=== PATIENT | male | born 1970 | race Caucasian/White ===

== ENCOUNTER 2019-05-03 09:02 | Emergency (ER) | payer OTHER, SELFPAY ==
[2019-05-03 09:03] VITALS: BP 139/90; PULSE 77; RESP 20; TEMP 36.6; O2SAT 98; BMI 39.3
--- NOTE | 2019-05-03 09:15 | ED.DCSUM_ITS ---
History of Present Illness Chief Complaint: Shortness of Breath Informant: Patient Onset: Weeks - 2 Activity at onset: Exertion Timing: Continuous Quality: Dyspnea on exertion, Wheezing Current Severity: Moderate Maximum Severity: Moderate Worsened by: Coughing, Exertion, - - smoking Relieved by: Rest Associated Symptoms: Cough - [employer], Rhinorrhea. Negative for: Bloody Sputum, Chills, Ear pain, Fever, Sore throat Chest Pain: Tightness - mild, when wheezing Narrative: Smoker with 4-48-lvgy-year history, about half pack per day, states that for the past 2 weeks he has had a respiratory illness, he states it feels like there is some fluid on his lungs he is developed wheezing with chest tightness that worsened and improved together, without orthopnea, fevers, leg edema. He has no known history of pulmonary or cardiac disease. He denies any palpitations or other systemic symptoms. - Past Medical History (1) Schizoaffective disorder Status: Acute Past Medical History - Allergies and Home Meds Allergies/Adverse Reactions: Allergies No Known Allergies Allergy (Verified 05/03/19 09:06) Primary Care Physician: Leonid Doctor,Out of [Family Provider] - Smoking Status: Current every day smoker Drugs: None Review of Systems General: Denies: Chills, Fever, Sweats Eyes: Denies: Visual changes - bilaterally, Diplopia ENT: Reports: Rhinorrhea. Denies: Bilateral ear pain, Sore throat Cardiovascular: Reports: Chest pain. Denies: Palpitations, Heart racing Respiratory: Reports: Dyspnea, Cough, Dyspnea on exertion. Denies: Sputum, Orthopnea, Paroxysmal nocturnal dyspnea Gastrointestinal: Denies: Abdominal pain, Nausea, Vomiting, Diarrhea, Melena, Hematochezia Genitourinary: Denies: Dysuria, Hematuria, Frequency Musculoskeletal: Denies: Back pain, Swelling, Extremity Pain Skin: Denies: Rash, Wounds Neurological: Denies: Headache, Weakness, Numbness Physical Exam Vital Signs/Narrative: Vital Signs Temp Pulse Resp BP Pulse Ox 05/03/19 09:03 97.8 F 77 20 H 139/90 H 98 Inital Vital Signs reviewed: Yes General: Well nourished, Well developed, No Acute Distress - Speaking in full sentences, well-appearing, no coughing during exam Head: Normocephalic, Atraumatic Eyes: Perrl, EOMI ENT: Moist mucous membranes, No rhinorrhea Neck: Supple, Nontender, No JVD Cardiovascular: Regular rate, Regular rhythm, No murmurs, Normal S1, Normal S2. Negative for: Tachycardia Respiratory: No distress, Chest nontender, Wheezing. Negative for: Rales, Rhonchi Abdomen: Soft, Nontender, Nondistended, Normal bowel sounds Back: Nontender, Normal Inspection Extremities: Nontender, No edema. Negative for: Calf Tenderness Skin: Normal color, No rash, No Trauma Neurological: Alert, Oriented x3, Cranial nerves II-XII grossly intact, Normal Strength, Normal Sensation, Normal Gait Psychological: Normal affect, Normal Mood Diagnostic/Tx/Re-eval Chest X-Ray - ED: 2 View, Read by ED Physician, Normal, Heart, Lungs, Medi astinum, Bony Structures, No Acute Disease Clinical Impression(s) from Imaging Studies Chest X-Ray 05/03/19 09:15 IMPRESSION: No acute process. Electronically Signed: Weston Garcia MD at 9:49 EDT , Service support , Treatment - Dyspnea: Albuterol, Atrovent Repeat Evaluation: Improved - On reexamination, wheezing resolved and lungs clear - Medical Decision Making Given patient worsening after 2 weeks, will prescribe a broad-spectrum antibiotic to cover atypicals, azithromycin. Also will give him a prescription for an albuterol MDI. Advised to follow-up or return if worse. ED Disposition - Plan for ED Patient: Disposition: Home or Assisted Living Diagnosis: Acute wheezy bronchitis Instructions: BRONCHITIS with Wheezing (Adult) Prescriptions: Albuterol Inhaler [Ventolin Hfa] 1 - 2 puff INHALATION Q4H PRN PRN #1 inhaler PRN Reason: Wheezing Prescription Printed Azithromycin [Zithromax Z-Jac] 250 mg PO UD #1 box Prescription Printed Referrals: [facility] Doctor,Out of [Family Provider] - 1 Week if not improving
--- NOTE | 2019-05-03 09:15 | RAD_ITS ---
STUDY: X-RAY CHEST REASON FOR EXAM: Male, 49 years old. Cough/shortness of breath TECHNIQUE: PA and lateral views of the chest. COMPARISON: None. FINDINGS: The right upper lobe appears somewhat small in volume. There is appearance of several adjacent healed rib fractures. The visualized lung carrillo are otherwise. There is no demonstrated pleural abnormality. Normal size heart. Normal mediastinum and tracy. Normal visualized pulmonary arteries. Normal visualized aortic arch and descending thoracic aorta. Normal visualized thoracic spine. Normal visualized clavicles, and shoulders. RAD/Chest PA and Lateral IMPRESSION: No acute process. Electronically Signed: Weston Garcia MD at 9:49 EDT , Service support ,
[2019-05-03] MEDS: Albuterol 2.5 MG/3 ML VIAL.NEB. INHALATION (09:22)
[2019-05-03] MEDS: Ipratropium/Albuterol Sulfate 3 ML AMPUL.NEB INHALATION (09:22)
[2019-05-03 09:25] VITALS: PULSE 80; RESP 20
== END 2019-05-03 10:06 | disposition home or self-care (01) ==
PROVIDERS: Emergency Provider Emergency Medicine
DX: J20.9 Acute bronchitis, unspecified (principal); F17.200 Nicotine dependence, unspecified, uncomplicated
CPT/HCPCS: 71046; 94640; 99282

== ENCOUNTER 2023-05-30 13:55 | Emergency (ER) | payer OTHER, SELFPAY ==
[2023-05-30 13:56] VITALS: BP 136/86; PULSE 106; RESP 14; TEMP 36.4; O2SAT 98; BMI 38.5
--- NOTE | 2023-05-30 14:13 | EDS_ITS ---
HPI History of Present Illness Chief Complaint: Male Pain/Injury Detail of Chief Complaint: Perineum pain and weak urine stream Informant: patient Narrative Narrative: Patient presents to the emergency department with several complaints. Patient states that last evening he had some discomfort in his perineum which she thought was related to his prostate. Pain lasted a few hours and then resolved. Patient also states that he had a weak urine stream for about 3 years. Patient at times also having a hard time obtaining a full erection. He has not seen anybody for this. Patient does state that he wakes up in the middle night to ur inate and urinates about 6 times a day. He denies any fevers or chills or sweats. Patient normally goes to the [place] but has not talked to his doctors about any of this. PFSH PFSH Medical History no medical history Allergy/AdvReac Type Severity Reaction Status Date / Time No Known Allergies Allergy Verified 05/30/23 13:57 Social History Smoking Status: Current every day smoker tobacco type: cigarettes ROS ROS ED Review of Systems ROS Unobtainable: other Constitutional Constitutional ED: Reports lethargy; Denies chills, fever(s), sweats or weight loss Eyes Eyes: Denies blurry vision, change in vision or diplopia ENT ENT ED: Denies rhinorrhea or sore throat Cardiovascular Cardiovascular: Reports chest pain and racing heartbeat; Denies orthopnea Respiratory/Chest Respiratory/Chest: Reports dyspnea and dyspnea on exertion; Denies cough, orthopnea or sputum Gastrointestinal Gastrointestinal: Denies abdominal pain, diarrhea, nausea or vomiting Genitourinary Genitourinary ED: Reports other Details: Weak urine stream intermittent, perineal pain resolved, difficulty obtaining erection. ; Denies dysuria, hematuria or urinary frequency Musculoskeletal Musculoskeletal: Denies arthralgias, back pain, myalgias or neck pain Integumentary Denies abscess, Abrasions or rash Neurologic Neurologic: Denies headache(s) or weakness Psychiatric Psychiatric: Denies anxiety, depression or suicidal thoughts Endocrine Endocrinology: Denies polydipsia, polyphagia or polyuria Hematologic/Lymphatic Hematologic/Lymphatic: Denies easy bleeding, easy bruising or lymphadenopathy Allergic/Immunologic Allergic/Immunologic ED: Denies mouth swelling, tongue swelling or urticaria EXAM Physical Exam Const Vital Signs: 05/30/23 13:56 Temperature 97.5 F L Temperature Source Temporal Pulse Rate 106 H Respiratory Rate 14 Blood Pressure 136/86 H Blood Pressure Mean 102 Pulse Ox 98 Oxygen Delivery Method Room Air Positive well nourished and well developed General Appearance ED: well developed and NAD HEENT Reports TM's clear and moist mucous membranes normocephalic and atraumatic; Negative for trauma or tenderness Tympanic Membrane ED: Yes TM's clear Eyes PERRL and EOMs intact bilaterally General Eye ED: Negative for pale conjunctiva or scleral icterus Neck no lymphadenopathy, supple and no JVD General: Negative for tenderness Chest Wall inspection of chest normal and palpation of chest normal Chest: Negative for tenderness Resp normal respiratory effort and clear to auscultation bilaterally Effort and Inspection: Negative for respiratory distress or pain with movement Auscultation: Negative for rhonchi, wheezes or diminished lung sounds Cardio regular rate, regular rhythm, S1 normal heart sound, S2 normal heart sound and no murmurs Peripheral Pulses: pulses 2+ throughout GI normal to inspection, nondistended, normoactive bowel sounds, soft to palpation, non-tender, non-distended and no masses no CVA tenderness Narrative: Normal exam of penis and scrotum. No tenderness over the testicles or epididymides. Rectal exam performed and prostate was nontender. Slightly enlarged. No masses palpated over the area of the prostate. No abnormalities in the perineum noted. Back/Spine no CVA tenderness and no thoracic nor lumbar tenderness Extremity normal to inspection General Extremety ED: Negative for edema General Extremity: Negative for edema Neuro oriented x3, CN's II-XII intact bilaterally, no sensory deficits noted and gait normal Sensorium / Orientation: awake, alert, oriented to person, oriented to place and oriented to time Motor Exam: strength 5/5 throughout and strength abnormal Psych mental status grossly normal Skin no rashes or lesions noted and no wounds MDM MDM MDM Narrative Medical decision making narrative: Patient presents with chronic complaints that have not been addressed by his primary care physician. I did order a urinalysis. Also ordered a PSA as a baseline that he can follow-up with urology for his complaints. Patient's PSA was normal and patient also had a normal urinalysis other than he was spilling glucose. Discussed results with patient. Will refer to urology for follow-up to evaluate further for week urine stream and difficulty with obtaining erection. Patient did have glucose in the urine and he is a known diabetic. Lab Data Attestation: I reviewed the patient's lab results. Labs: Laboratory Results - last 24 hr 05/30/23 05/30/23 14:28 14:29 PSA Screen 0.35 Urine Color Yellow Urine Clarity Clear Urine pH 7.0 Ur Specific [place] 1.010 Urine Protein Negative Urine Glucose (UA) 1000 H Urine Ketones Negative Urine Occult Blood Negative Urine Nitrite Negative Urine Bilirubin Negative Urine Urobilinogen 1 H Ur Leukocyte Esterase Negative Urine RBC 0 SEEN Urine WBC 0 SEEN Ur Squamous Epith Cells 0 SEEN Urine Bacteria 0 SEEN Urine Mucus 0 SEEN Discharge Plan Triage Chief Complaint: Male Pain/Injury ED Provider: Kota Brown Dx/Rx/DC Orders Clinical Impression: Male perineal pain Instructions: ED Pain, Acute, Uncertain Cause Prescriptions: Discontinued azithromycin 250 MG tablet 250 mg PO UD Qty: 1 0RF Rx Instructions: TAKE 2 TABLETS 1ST DAY THEN 1 TABLET DAILY FOR NEXT 4 DAYS. albuterol sulfate 1 INHALER inhaler 1 - 2 puff inhalation Q4H PRN PRN (Reason: Wheezing) Qty: 1 0RF [facility] Provider[facility] Referrals: Reginaldo Barrett MD [Med Staff - Active Staff] - 3-5 Days [facility] [Primary Care Provider] - Disposition Disposition: Home, Self Care Discharge Date/Time: 05/30/23 15:24
[2023-05-30 14:40] LABS: Bacteria 0 SEEN /hpf (None Seen); Mucous, Urine 0 SEEN /hpf (<or=2+); Red Blood Cells-Urine 0 SEEN /hpf (0-5); Squamous Epithelial Cells - UA 0 SEEN /hpf (0-5); White Blood Cells 0 SEEN /hpf (0-5)
[2023-05-30 14:42] LABS: Color, Urine Yellow (Yellow); Glucose, Dipstick 1000 mg/dl (Normal); Ketone-Dipstick Negative (Negative); Leukocyte Esterase-Dipstick Negative /ul (Negative); Nitrite-Dipstick Negative (Negative); Occult Blood-Urine Negative /ul (Negative); Protein-Dipstick Negative (Negative); Urine Bilirubin Dipstick Negative (Negative); Urine Clarity Clear (Clear); Urine Urobilinogen 1 mg/dl (Normal)
[2023-05-30 14:58] LABS: PSA,Total - Annual Screen 0.35 ng/mL (0.00-4.00)
== END 2023-05-30 15:24 | disposition home or self-care (01) ==
PROVIDERS: Emergency Provider Emergency Medicine; Visit Provider Emergency Medicine
DX: R10.2 Pelvic and perineal pain (principal); E11.9 Type 2 diabetes mellitus without complications; F17.210 Nicotine dependence, cigarettes, uncomplicated
CPT/HCPCS: 36415; 81001; 84153; 99282; G0103